=== PATIENT | male | born 1985 | race Caucasian/White ===

== ENCOUNTER 2022-10-02 00:24 | Emergency (ER) | payer MEDICAID, OTHER ==
[~2022-10-02] VITALS: Ht 170.2 cm; Wt 108.9 kg
[2022-10-02 00:30] VITALS: BP_SYST 137; PULSE 68; RESP 20; TEMP 97.3; O2SAT 100
--- NOTE | 2022-10-02 00:38 | NUR ---
Patient to ER bed 08 to gown for evaluation. Side rails up. Report given to [place].
--- NOTE | 2022-10-02 00:45 | NUR ---
ER Dr. ABARCA at bedside examining patient.
--- NOTE | 2022-10-02 00:45 | NUR ---
PT BIB FAMILY MEMBER FROM HOME, AMBULATED TO BED 8. PT A&Ox4, ABLE TO MAKE NEEDS KNOWN. PT C/O CHEST PAIN X1 HOUR. PT RATES PAIN 2/10. PT DENIES TAKING MEDICATION FOR THE PAIN. PT DENIES INJURY. PT DENIES N/V/D, FEVER AND CHILLS. SAFETY PRECAUTIONS IN PLACE.
[2022-10-02] MEDS ORDERED: VIS25 PO (00:57)
--- NOTE | 2022-10-02 01:17 | NUR ---
Patient given written and verbal discharge instructions and verbalizes understanding. ER MD discussed with patient the results and treatment provided. Patient in stable condition. ID arm band removed. Rx of HYDROXYZINE given. Patient educated on pain management and to follow up with PMD. Pain Scale 0/10. Opportunity for questions provided and answered. Medication side effect fact sheet provided.
== END 2022-10-02 01:19 | disposition home or self-care (01) ==
LOC: SED 00:24
DX: R07.89 Other chest pain (principal); R06.02 Shortness of breath; F41.9 Anxiety disorder, unspecified; F12.90 Cannabis use, unspecified, uncomplicated; Z79.899 Other long term (current) drug therapy
CPT/HCPCS: 93005; 99283